=== PATIENT | male | born 1975 | race Hispanic/Latino ===

== ENCOUNTER 2017-07-25 07:50 | Inpatient (IN) | payer OTHER ==
[2017-07-24 10:12] VITALS: BMI 24.2
--- NOTE | 2017-07-25 05:56 | HP ---
HISTORY OF PRESENT ILLNESS: Mr. Lake presents for discussion of long-term C7 radiculopathy in the left upper extremity. He had a C5-C6 disk replacement in 2010 to help with the same problem and was told that he would need a C5 through C7 surgery; however, opted not to as he was told this would resu lt in an automatic medical board correction from the . As such he has continued to struggle with pain. He also reports left lower extremity L5 radiculopathy. He has been receiving epidural st [place] Myelogram on disk of the cervical spine reveals [id number] spinal stenosis to the left at C6-C7, which is consistent with his symptoms. He h as no lumbar spine imaging at this time, but prefers not to pursue it at present. PAST MEDICAL HISTORY: Significant for neck and back problems. CURRENT MEDICATIONS: Paxil and prazosin. ALLERGIES: No known drug allergies. PAST SURGICAL HISTORY: Cervical disk replacement and unspecified elbow, wrist, and hand surgery. PHYSICAL EXAMINATION: NEUROLOGIC: The patient is alert and oriented x3. Gait is normal. No ataxia. Positive Spurling's to the left upper extremity. Motor exam is normal. ASSESSMENT: Cervical radiculopathy. PLAN: Dr. Guardado met with the patient, reviewed imaging and ultimately advocated for a C6-C7 ACDF. H e explained to the patient the risks, benefits, alternatives of the procedure. The patient expressed understanding and would like to move forward with surgery as discussed. I do believe the patient is mentally competent and capable of making medical decisions for himself and we will move forward with surgery as planned. This is Armand Naranjo PA-C, dictating for Dr. Guardado.
[2017-07-25] MEDS ORDERED: Glycopyrrolate 0.2 MG/ML 5 ML SYRINGE ONE (09:03)
[2017-07-25] MEDS ORDERED: Propofol 200 MG/20 ML VIAL ONE (09:03)
[2017-07-25] MEDS ORDERED: Dexamethasone 20 MG/5 ML VIAL ONE (09:03)
[2017-07-25] MEDS ORDERED: Ondansetron HCl/PF 4 MG/2 ML Vial ONE (09:03)
[2017-07-25] MEDS ORDERED: PHENYLEPHRINE-NS 100 MCG/ML 10 ML SYRINGE ONE (09:03)
[2017-07-25] MEDS ORDERED: ePHEDrine/0.9% NaCl/PF SYRINGE 50 mg/10 ml ONE (09:03)
[2017-07-25] MEDS ORDERED: Lidocaine 1% PF 5 ML VIAL ONE (09:03)
[2017-07-25] MEDS ORDERED: Ketorolac Tromethamine 30 MG/ML VIAL ONE (09:03)
[2017-07-25] MEDS ORDERED: CEFAZOLIN/Water 2 GM/20 ML SYRINGE ONE ×2 (09:41→14:23)
[2017-07-25] MEDS ORDERED: Midazolam HCl 2 mg/2 ml Vial ONE ×2 (09:41→10:45)
[2017-07-25] MEDS ORDERED: Fentanyl 100 MCG/2 ML VIAL ONE ×2 (10:45→12:44)
[2017-07-25] MEDS ORDERED: Tamsulosin HCl 0.4 MG CAP ONE (12:44)
--- NOTE | 2017-07-25 12:59 | OP ---
DATE OF PROCEDURE: 07/25/2017 SURGEON: Bhavin Guardado M.D. [employer] PAINTER: Armand Naranjo PA-C. INDICATION: Pain. DIAGNOSIS: Cervical radiculopathy. PROCEDURE: Anterior cervical discectomy and fusion at C6-7. ANESTHESIA: General. TECHNIQUE: The patient was brought into the operating room and placed under general anesthesia. He was placed on the table in a supine position. A transverse incision was planned over the lateral asp ect of the neck on the right. After prepping and draping and after an appropriate operative pause, t he incision was created. The soft tissues were swept away from midline. A self-retaining retractor was placed in the wound for optimal exposure. A blunt tissue plane was used to gain access to the pr evertebral space. Self-retaining retractors were placed there and C-arm image was obtained to confir m the appropriate level. After confirming the appropriate level, an annulotomy was performed in the C6-7 disk space. All disk material as well as anterior and posterior osteophytes were removed. Afte r complete decompression, a 7 mm lordotic PEEK cage packed with allograft and autograft material was placed within the interbody space. An anterior cervical plate was then fashioned in front of the spi ne and secured with a total of 4 fixed screws. Midline and lateral structures were inspected and fou nd to be free from significant trauma. The wound was irrigated. Hemostasis was maintained throughou t. The wound was then closed in anatomic layers and a pressure dressing was applied. There were no known procedural complications.
== END 2017-07-25 15:05 | disposition home or self-care (01) | DRG 30 ==
LOC: SURG A 07:50
PROVIDERS: ADMIT Neurological Surgery; ATTEND Neurological Surgery
PROC: 0RG10A0 Fusion of Cervical Vertebral Joint with Interbody Fusion Device, Anterior Approach, Anterior Column, Open Approach (ICD-10-PCS; principal; 2017-07-25)
PROC: 0RT30ZZ Resection of Cervical Vertebral Disc, Open Approach (ICD-10-PCS; 2017-07-25)
DX: M54.12 Radiculopathy, cervical region (principal); M48.02 Spinal stenosis, cervical region
CPT/HCPCS: 76001; 96374; C1713; J1100; J1885; J2001; J2250; J2405; J2704; J3010

== ENCOUNTER 2017-09-11 09:56 | Outpatient (CLI) | payer OTHER ==
--- NOTE | 2017-09-11 10:43 | RAD ---
CERVICAL SPINE 3 VIEWS: HISTORY: Cervical radiculopathy. Postop followup. FINDINGS: Disk implant is noted at the C5-6 disk space. This appears to be in adequate position. Anterior plate and screws transfix C6 and C7 with interbody implant at C6-7 which appears adequately positioned. Posterior alignment is preserved. The vertebral body height is preserved posteriorly. Mild anterior wedging of C5. IMPRESSION: Postoperative changes of cervical spine as described. POS: ROBERT
== END 2017-09-11 09:57 | disposition home or self-care (01) ==
LOC: TBSIIMAG 09:56
PROVIDERS: ATTEND Neurological Surgery
DX: M54.12 Radiculopathy, cervical region (principal); Z98.1 Arthrodesis status
CPT/HCPCS: 72040